=== PATIENT | female | born 1945 | race Caucasian/White ===

== ENCOUNTER → 2018-05-19 | Outpatient (CLI) | payer MEDICARE, BC, OTHER ==
[~2018-05-19] MED LIST: ALE70 PO; ASCO-180 PO; ASPI-715 PO; COLE625T15 PO; EST42T PV; GLUCOSAMINE CHO1 CA3 PO; LEV137 PO; RAM8 PO; [UNRECOGNIZED DRUG - CODE] PO
--- NOTE | 2018-05-19 15:22 | RADIOLOGY IMAGING REPORT ---
FACILITY: [facility] PATIENT NAME: PEREZ GORDON : [id number] MR: [id number] V: [id number] EXAM DATE: [id number] ORDERING PHYSICIAN: ROSALINDA FAIRBANKS TECHNOLOGIST: Etelvina Ni PROCEDURE:BILATERAL DIGITAL SCREENING MAMMOGRAM WITH CAD ASSISTED INTERPRETATION & 3D TOMOSYNTHESIS COMPARISON:Prior mammograms 10/20/16, 06/10/15. INDICATIONS:SCREENING FINDINGS: There is scattered fibroglandular tissue. No suspicious mass, microcalcification or architectural distortion. No change compared to priors. DIAGNOSTIC CATEGORY 1--NEGATIVE. RECOMMENDATIONS: ROUTINE MAMMOGRAM AND CLINICAL EVALUATION. IMPRESSION: BIRADS 1: Negative. Annual mammographic screening recommended. Dictated by: José Luis Hackett on 05/19/2018 at 11:39 Transcribed by: SYLVIE on 05/19/2018 at 13:13 Approved by: José Luis Hackett on 05/19/2018 at 15:21 [facility]
== END ==
LOC: MAMO 03:09
PROVIDERS: ATTEND Internal Medicine
DX: Z12.31 Encounter for screening mammogram for malignant neoplasm of breast (principal)
CPT/HCPCS: 77063; 77067

== ENCOUNTER → 2018-06-09 | Outpatient (CLI) | payer MEDICARE, BC, OTHER | LOC: LAB 09:56 | PROVIDERS: ATTEND Internal Medicine | DX: E03.4 Atrophy of thyroid (acquired) (principal) | CPT/HCPCS: 36415; 84439; 84443 ==

== ENCOUNTER → 2018-07-20 | Outpatient (CLI) | payer MEDICARE, BC, OTHER | LOC: LAB 09:03 | PROVIDERS: ATTEND Internal Medicine | DX: E03.4 Atrophy of thyroid (acquired) (principal) | CPT/HCPCS: 36415; 84439; 84443 ==

== ENCOUNTER → 2018-08-29 | Outpatient (CLI) | payer MEDICARE, BC, OTHER | LOC: LAB 11:47 | PROVIDERS: ATTEND Internal Medicine | DX: E03.9 Hypothyroidism, unspecified (principal) | CPT/HCPCS: 36415; 84439; 84443 ==